=== PATIENT | male | born 1940 | race Caucasian/White ===

== ENCOUNTER 2018-06-14 19:37 | Emergency (ER) | payer OTHER ==
[2018-06-14 19:48] VITALS: PULSE 76; TEMP 98; BMI 27.8
--- NOTE | 2018-06-14 20:15 | PDOC ---
History of Present Illness - General History Source: Patient Exam Limitations: No Limitations - History of Present Illness Initial Comments: 06/14/18 21:26 The patient is a 78 year old male with a significant past medical history of asthma (uses pump daily), HLD and pre-diabetic who presents to the ER with shortness of breath and left calf pain after a 15 hour flight from [place]. Patient states that he slept throughout the majority of the airplane flight. Patient reports mild shortness of breath while flying that worsened while he was walking up a flight of stairs today evening. Patient notes he had mild difficulty speaking in full sentences secondary to the shortness of breath. Patient denies chest pain or diaphoresis. Patient states he did use his pump today. Patient denies any prior hospitalizations or steroid use for his asthma. Patient ate and drank normally today. The patient denies chest pain, headache, and dizziness. Denies fever, chills, nausea, vomit, diarrhea, and constipation. Denies dysuria, frequency, urgency, and hematuria. Allergies: NKA Past surgical history: None reported. Social history: None reported. <Mariela Elizabeth - Last Filed: 06/14/18 22:45> <Shari Anglin - Last Filed: 06/15/18 06:44> - General Chief Complaint: Shortness of Breath Stated Complaint: SOB AFTER LONG FLIGHT Time Seen by Provider: 06/14/18 19:40 Past History <Mariela Elizabeth - Last Filed: 06/14/18 22:45> - Past Medical History COPD: No Diabetes: Yes (PRE) Hypercholesterolemia: Yes - Suicide/Smoking/Psychosocial Hx Smoking History: Unknown if ever smoked Have you smoked in the past 12 months: No Number of Cigarettes Smoked Daily: 0 Information on smoking cessation initiated: No Hx Alcohol Use: No Drug/Substance Use Hx: No Substance Use Type: None <Shari Anglin - Last Filed: 06/15/18 06:44> - Past Medical History Allergies/Adverse Reactions: Allergies Allergy/AdvReac Type Severity Reaction Status Date / Time No Known Allergies Allergy Unverified 06/14/18 19:42 Home Medications: Ambulatory Orders Aspirin [ASA -] 81 mg PO DAILY 06/14/18 Atorvastatin Calcium [Lipitor] 10 mg PO DAILY 06/14/18 Ipratropium/Albuterol Sulfate [Combivent Respimat Inhal Boss] 4 gm IH QID PRN # 1 aer.w.adap 06/15/18 Review of Systems - Review of Systems Able to Perform ROS?: Yes Comments:: 06/14/18 21:28 All systems are reviewed and negative except as noted in the HPI <Mariela Elizabeth - Last Filed: 06/14/18 22:45> *Physical Exam - Vital Signs Last Vital Signs Temp Pulse Resp BP Pulse Ox 98 F 76 14 135/77 96 06/14/18 19:44 06/14/18 19:44 06/14/18 19:44 06/14/18 19:44 06/14/18 19:44 - Physical Exam Comments: 06/14/18 21:28 ADULT EXAM GENERAL: Awake, alert, and fully oriented, in no acute distress HEAD: No signs of trauma EYES: PERRLA, EOMI, sclera anicteric, conjunctiva clear ENT: Auricles normal inspection, hearing grossly normal, nares patent, oropharynx clear without exudates. Moist mucosa NECK: Normal ROM, supple, no lymphadenopathy, JVD, or masses LUNGS: (+) Bilateral expiratory wheezing. Fair air movement. No crackles. HEART: Regular rate and rhythm, normal S1 and S2, no murmurs, rubs or gallops ABDOMEN: Soft, nontender, normoactive bowel sounds. No guarding, no rebound. No masses EXTREMITIES: (+) 1+ pitting edema of the left ankle, minimal edema to the right ankle. (+) Mild left calf tenderness without masses or cords. NEUROLOGICAL: Cranial nerves II through XII grossly intact. Normal speech, normal gait SKIN: Warm, Dry, normal turgor, no rashes or lesions noted. <Mariela Elizabeth - Last Filed: 06/14/18 22:45> - Vital Signs Last Vital Signs Temp Pulse Resp BP Pulse Ox 98 F 76 14 135/77 96 06/14/18 19:44 06/14/18 19:44 06/14/18 19:44 06/14/18 19:44 06/14/18 19:44 <Shari Anglin - Last Filed: 06/15/18 06:44> ED Treatment Course - LABORATORY CBC & Chemistry Diagram: 06/14/18 21:31 09/26/18 21:31 <Mariela Elizabeth - Last Filed: 06/14/18 22:45> - LABORATORY CBC & Chemistry Diagram: 06/14/18 21:31 06/14/18 21:31 <Shari Anglin - Last Filed: 06/15/18 06:44> Medical Decision Making - Medical Decision Making Documentation has been prepared under my direction and personally reviewed by me in its entirety. I attest that this documented accurately reflects all work, treatment, procedures and medical decision making performed by me. As noted above, this 78-year-old man with a history of asthma/hyperlipidemia presents with dyspnea on exertion. Patient has just flown from [place] (15 hour flight) to visit family here. As noted, patient has no other associated symptoms. Exam as noted. 12-lead electrocardiogram was performed and interpreted by me: Sinus rhythm at 70 bpm with occasional PVCs. Bifascicular block was present with no evidence of acute ST or T-wave abnormalities. No other arrhythmia except for occasional PVCs seen. Because patient had recently been sedentary for several hours (patient did not walk during the flight) and also has a sore left calf, workup for acute thromboembolic disease was performed. Also, because his EKG showed some evidence of structural abnormality (that is, bifascicular block) troponin level was also evaluated. Because of extensive wheezing on exam, the patient received DuoNeb treatment. Portable chest x-ray showed no evidence of acute pulmonary disease; no infiltrate/effusion/CHF Left lower extremity Doppler duplex study showed no evidence of DVT. Laboratory evaluation likewise show no evidence of elevation of WBC or anemia; chemistry profile was essentially normal and troponin was not elevated. D-dimer was not elevated. Workup shows no clear evidence of acute ischemia/OK or acute thromboembolic disease. The patient also had some relief of his wheezing after first DuoNeb treatment. However, repeat exam showed some residual expiratory wheezing bilaterally. Patient had second DuoNeb treatment with resolution of wheezing. Patient will be discharged with prescription for Combivent inhaler. It was explained to the patient and his family that he should be evaluated by roll mill operator ,or perhaps a collections analyst ,during his stay here in the [place]. The patient's daughter is a close friend of Dr. Spears and he will be called tomorrow to orchestrate further evaluation/treatment. If he has any worsening of his shortness of breath/dyspnea next surgeon or experiences chest pain, he should return to the ER. If he is traveling, he should report to the nearest medical facility. <Shari Anglin - Last Filed: 06/15/18 06:44> *DC/Admit/Observation/Transfer - Attestations Scribe Attestion: 06/14/18 21:30 Documentation prepared by Mariela Elizabeth, acting as medical payment poster for Shari Anglin MD. <Mariela Elizabeth - Last Filed: 06/14/18 22:45> <Shari Anglin - Last Filed: 06/15/18 06:44> Diagnosis at time of Disposition: Asthma Qualifiers: Asthma severity: moderate Asthma persistence: unspecified Asthma complication type: unspecified Qualified Code(s): J45.909 - Unspecified asthma, uncomplicated - Discharge Dispostion Disposition: HOME Condition at time of disposition: Stable - Prescriptions Prescriptions: Ipratropium/Albuterol Sulfate [Combivent Respimat Inhal Boss] 4 gm IH QID PRN # 1 aer.w.adap PRN Reason: Wheezing - Referrals Referrals: Yonathan Spears MD [Primary Care Provider] - Call tomorrow - Patient Instructions Printed Discharge Instructions: Asthma -- Adult Additional Instructions: Continue previous medications as prescribed Combivent inhaler every 6 hours as needed for shortness of breath/wheezing Contact tomorrow morning regarding further evaluation prior to traveling While you are traveling, go to nearest medical facility if you have persistent shortness of breath/wheezing - Post Discharge Activity
[2018-06-14] MEDS ORDERED: ALBUTEROL SO4 2.5/IPRATROPIUM 0.5 INH SOL 3 ML VIAL.NEB. NEB ONE ×2 (21:18→21:23)
[2018-06-14 21:51] LABS: HEMATOCRIT 37.1 % (35.4-49); HEMOGLOBIN 12.8 GM/dl (11.7-16.9); MCH 32.9 pg (25.7-33.7); MCHC 34.6 g/dl (32.0-35.9); MEAN CELL VOLUME 95.1 fl (80-96); MEAN PLT VOLUME 10.6 fl (7.5-11.1); PLATELET COUNT 222 K/MM3 (134-434); RDW 13.1 % (11.9-15.9); WHITE BLOOD COUNT 9.2 K/mm3 (4.0-10.8)
[2018-06-14 22:07] LABS: ALK PHOS 34 U/L (32-92); ANION GAP 6 MMOL/L (8-16); BILIRUBIN,TOTAL 0.9 mg/dl (0.2-1.0); BLOOD UREA NITROGEN 14 mg/dl (7-18); CALCIUM 8.8 mg/dl (8.4-10.2); CHLORIDE 108 mmol/L (98-107); CO2 25 mmol/L (22-28); CREATININE 0.8 mg/dl (0.6-1.3); GLUCOSE,RANDOM 128 mg/dl (74-106); POTASSIUM 4.5 mmol/L (3.5-5.1); SGOT/AST 29 U/L (10-42); SGPT/ALT 18 U/L (10-40); SODIUM 139 mmol/L (136-145); TOT PROT 6.8 g/dl (6.4-8.3)
[2018-06-14 22:42] LABS: PLATELET ESTIMATE ADEQUATE
[2018-06-15] MEDS ORDERED: ALBUTEROL SO4 2.5/IPRATROPIUM 0.5 INH SOL 3 ML VIAL.NEB. NEB ONE ×2 (00:04→00:08)
[2018-06-15 00:32] VITALS: BP 137/80
--- NOTE | 2018-06-15 09:39 | EKG ---
Test Reason : Blood Pressure : / mmHG Vent. Rate : 070 BPM Atrial Rate : 070 BPM P-R Int : 168 ms QRS Dur : 144 ms QT Int : 464 ms P-R-T Axes : 075 -68 037 degrees QTc Int : 501 ms SINUS RHYTHM WITH OCCASIONAL PREMATURE VENTRICULAR COMPLEXES RIGHT BUNDLE BRANCH BLOCK LEFT ANTERIOR FASCICULAR BLOCK BIFASCICULAR BLOCK ABNORMAL ECG NO PREVIOUS ECGS AVAILABLE Confirmed by AISHA CHARLES, GARTH ([id number]) on 06/15/2018 9:38:36 AM Referred By: MD CASTILLO Confirmed By:GARTH LEONARD MD
== END 2018-06-15 00:32 | disposition home or self-care (01) ==
LOC: FER 19:37
PROC: 3E0F7GC Introduction of Other Therapeutic Substance into Respiratory Tract, Via Natural or Artificial Opening (ICD-10-PCS; principal; 2018-06-14)
DX: J45.909 Unspecified asthma, uncomplicated (principal); R73.03 Prediabetes; E78.5 Hyperlipidemia, unspecified; E78.00 Pure hypercholesterolemia, unspecified
CPT/HCPCS: 36415; 71045-TC-FY; 80053; 82550; 82553; 84484; 85025; 85379; 93005; 93971-TC; 99283-25; J7620